=== PATIENT | female | born 1990 | race American Indian/Alaskan Native ===

== ENCOUNTER 2018-09-03 10:04 | Inpatient (IN) | payer MEDICAID ==
[2018-09-03] MEDS ORDERED: LACTATED RINGERS 1,000 ML ONE (10:54)
[2018-09-03] MEDS ORDERED: STADOL IV PRN (10:57)
[2018-09-03] MEDS ORDERED: BRETHINE SUB-Q PRN (10:57)
[2018-09-03] MEDS ORDERED: PHENERGAN PO PRN ×2 (10:57→13:59)
[2018-09-03] MEDS ORDERED: MINERAL OIL PO PRN (10:57)
[2018-09-03] MEDS ORDERED: XYLOCAINE 2% INFILTRATI ONE ×2 (10:57→13:53)
[2018-09-03] MEDS ORDERED: ZOFRAN IV PRN ×2 (10:57→13:59)
[2018-09-03] MEDS ORDERED: BRETHINE IVP PRN (10:57)
[2018-09-03] MEDS ORDERED: AMPICILLIN/NS 2 GM/100 ML 2 GM/100 ML BAG IV ONE (10:57)
[2018-09-03] MEDS ORDERED: SUBLIMAZE IV PRN (10:57)
[2018-09-03] MEDS ORDERED: LACTATED RINGERS 1,000 ML IV SCH (11:00)
[2018-09-03] MEDS ORDERED: PITOCin/NS 20 UNIT/1000ML DRIP 20 UNITS/1,000 ML BAG IV SCH ×2 (11:00→14:00)
[2018-09-03] MEDS ORDERED: PITOCin/NS 30 UNIT/500ML 30 UNITS/500 ML BAG IV SCH (11:00)
--- NOTE | 2018-09-03 11:00 | History and Physical Report ---
History of Present Illness Date of examination: 09/03/18 Chief complaint: Labor History of present illness: Pt is a 27yo BF EDC 09/29/18; EGA 36 2/7 weeks presents to L&D complaining of RUC's q 2-3 mins. She received late care with [facility] since 22 weeks and had only 3 visits. She was referred to [facility] for evaluation due to history of seizures. records were not available. Past History Past Medical History: no pertinent history Past Surgical History: no surgical history Family/Genetic History: none Social history: no significant social history, single - Obstetrical History Expected Date of Delivery: 09/29/18 Actual Gestation: 36 Week(s) 2 Day(s) : 3 Medications and Allergies Allergies Allergy/AdvReac Type Severity Reaction Status Date / Time No Known Allergies Allergy Verified 05/06/13 22:26 Home Medications Medication Instructions Recorded Confirmed Last Taken Type Lacosamide [Vimpat] 200 mg PO Q12HR 05/06/13 06/18/18 Unknown History Topiramate [Topamax] 100 mg PO BID 05/06/13 06/18/18 Unknown History Pnv,Calcium 72/Iron/Folic Acid 1 tab PO QDAY 06/18/18 06/18/18 Unknown History [ Vitamin Plus Low Iron] lamoTRIgine [LaMICtal] 25 mg PO BID 06/18/18 06/18/18 Unknown History Review of Systems All systems: negative - Physical Exam Breasts: Positive: deferred Cardiovascular: Regular rate Lungs: Positive: Clear to auscultation Abdomen: Positive: normal appearance Genitourinary (Female): Positive: normal external genitalia Uterus: Positive: enlarged - Obstetrical FHR: category 1 Uterine Contraction Monitor Mode: External Cervical Dilatation: 8 Cervical Effacement Percentage: 90 station: -2 Uterine Contraction Pattern: Regular Uterine Tone Measurement Phase: Contraction Uterine Contraction Intensity: Strong/Firm Results Result Diagrams: 09/03/18 12:05 All other labs normal. Assessment and Plan - Patient Problems (1) 36 weeks gestation of Onset Date: 09/03/18 Current Visit: Yes Status: Acute Plan to address problem: A: IUP @ 36 2/7 weeks in labor labor History of seizures P: Admit to L&D for expectant vaginal delivery Obtain records. (2) contractions Onset Date: 09/03/18 Current Visit: Yes Status: Acute
[2018-09-03 11:22] LABS: Bacteria,Urine 1+ /HPF (Negative); Bilirubin,Urine NEG (Negative); Blood,Urine NEG (Negative); Calcium Oxalate Crystals,Urine 3+; Color,Urine Amber (Yellow); Mucus,Urine 2+ /HPF; Urobilinogen,Urine < 2.0 mg/dL (<2.0)
[2018-09-03 11:29] LABS: Amphetamine Screen,Urine PRESUMPTIVE NEGATIVE; Benzodiazepines Screen,Urine PRESUMPTIVE NEGATIVE; Cannabinoid Screen,Urine PRESUMPTIVE NEGATIVE; Cocaine Screen,Urine PRESUMPTIVE NEGATIVE; Methadone Screen,Urine PRESUMPTIVE NEGATIVE; Opiate Screen,Urine PRESUMPTIVE NEGATIVE
[2018-09-03 12:33] LABS: Hematocrit 35.6 % (30.3-42.9); Hemoglobin 11.7 gm/dl (10.1-14.3); Mean Corpuscular HGB Conc 33 % (30-34); Mean Corpuscular Volume 90 fl (79-97); Platelet Count 210 K/mm3 (140-440); Red Blood Count 3.94 M/mm3 (3.65-5.03); Red Cell Distribution Width 14.6 % (13.2-15.2)
--- NOTE | 2018-09-03 13:58 | Procedure Note ---
OB Delivery Note - Delivery Date of Delivery: 09/03/18 Surgeon: ARMIDA RUST Estimated blood loss: 300cc - Vaginal Delivery presentation: vertex Delivery position: OA Intrapartum events: labor-<37 weeks, precipitous labor- <3hr Delivery induction: none Delivery augmentation: rupture of membranes Delivery monitor: external FHT, external uterine Route of delivery: Delivery placenta: spontaneous Delivery cord: 3 umbilical vessels Episiotomy: none Delivery laceration: 1st degree Delivery repair: vicryl Anesthesia: local Delivery comments: delivered OA an placed on Mom's chest for [id number] bonding and delayed cord clamping - Infant A at 1 minute: 8 at 5 minutes: 9 Infant Gender: Male (2775gms)
[2018-09-03] MEDS ORDERED: MILK OF MAGNESIA PO PRN (13:59)
[2018-09-03] MEDS ORDERED: PHENERGAN PR PRN (13:59)
[2018-09-03] MEDS ORDERED: TUCKS PAD TP PRN (13:59)
[2018-09-03] MEDS ORDERED: DULCOLAX PR PRN (13:59)
[2018-09-03] MEDS ORDERED: BENADRYL PO PRN (13:59)
[2018-09-03] MEDS ORDERED: DERMOPLAST TP PRN (13:59)
[2018-09-03] MEDS ORDERED: LANSINOH TP PRN (13:59)
[2018-09-03] MEDS ORDERED: SODIUM CHLORIDE FLUSH SYRINGE 10 ML IV NR (14:00)
[2018-09-03] MEDS ORDERED: AMPICILLIN/NS 1 GM/50 ML 1 GM/50 ML BAG IV SCH (14:58)
[2018-09-03] MEDS: IBUPROFEN PO SCH (16:53)
[2018-09-03] MEDS: TYLENOL PO PRN (16:54)
[2018-09-03] MEDS: COLACE PO SCH (22:37)
[2018-09-03] MEDS: FEOSOL PO SCH (22:37)
[2018-09-03] MEDS: NORCO 5/325 PO PRN (22:37)
[2018-09-03] MEDS ORDERED: LaMICtal PO SCH (23:00)
[2018-09-03] MEDS ORDERED: VIMPAT PO SCH (23:00)
[2018-09-04] MEDS: TOPAMAX PO SCH ×3 (00:38→22:20)
[2018-09-04] MEDS: LaMICtal PO SCH ×3 (00:59→22:25)
[2018-09-04] MEDS: VIMPAT PO SCH ×3 (00:59→22:24)
[2018-09-04 01:11] LABS: Hematocrit 35.9 % (30.3-42.9); Hemoglobin 11.9 gm/dl (10.1-14.3)
[2018-09-04] MEDS: IBUPROFEN PO SCH ×3 (04:52→21:32)
[2018-09-04] MEDS: TYLENOL PO PRN (05:07)
[2018-09-04] MEDS ORDERED: BOOSTRIX IM ONE (06:00)
[2018-09-04] MEDS ORDERED: M-M-R II VACCINE SUB-Q ONE (06:00)
--- NOTE | 2018-09-04 09:38 | Progress Note ---
Assessment and Plan - Patient Problems (1) 36 weeks gestation of Onset Date: 09/03/18 Current Visit: Yes Status: Resolved (2) contractions Onset Date: 09/03/18 Current Visit: Yes Status: Resolved (3) (normal spontaneous vaginal delivery) Onset Date: 09/04/18 Current Visit: Yes Status: Resolved Plan to address problem: A: S/P - PPD #1 Doing well History of seizures - stable. Spoke to Neurologist (Dr Castro) to continue home meds P: May go home tomorrow Follow up with [place] Neurologist (Dr Silverman) next week Subjective - Subjective Date of service: 09/04/18 Principal diagnosis: s/p - PPD #1 Interval history: Pt is feeling well without complaints. Bleeding improved. She denies any seizure activity and has not been able to get her home meds for evaluation. Patient reports: appetite normal, voiding normally, pain well controlled, flatus, ambulating normally, no dizzy ambulation, no nauseated [place]: doing well, in NICU Objective - Vital Signs Latest vital signs: Vital Signs Temp Pulse Resp BP Pulse Ox 09/04/18 08:01 98.4 F 83 24 111/80 100 09/04/18 02:58 98.5 F 86 20 130/92 98 09/03/18 21:58 98.5 F 81 20 125/84 99 09/03/18 16:54 20 09/03/18 15:07 95 H 136/91 09/03/18 14:52 93 H 126/84 09/03/18 14:37 96 H 123/84 09/03/18 14:22 97 H 127/84 09/03/18 14:07 100 H 123/88 09/03/18 11:01 97.9 F 18 Intake and Output 09/03/18 09/04/18 09/04/18 22:59 06:59 14:59 Intake Total 240 480 Output Total 500 Balance 240 -20 Intake: Oral 240 480 Output: Urine 500 Void 500 Other: Total, Intake Amount 240 240 Total, Output Amount 500 # Voids Void 1 1 - Exam Breasts: Present: deferred Abdomen: Present: normal appearance, soft Uterus: Present: normal, firm, fundal height below umbilicus Extremities: Present: normal - Labs Labs: Laboratory Tests 0209/03/18 09/03/18 12:05 12:05 Unknown WBC 9.4 RBC 3.94 Hgb 11.7 Hct 35.6 MCV 90 MCH 30 MCHC 33 RDW 14.6 Plt Count 210 Urine Color Sheree Urine Turbidity Cloudy Urine pH 5.0 Ur Specific [place] 1.024 Urine Protein 30 mg/dl Urine Glucose (UA) Neg Urine Ketones Neg Urine Blood Neg Urine Nitrite Neg Urine Bilirubin Neg Urine Urobilinogen < 2.0 Ur Leukocyte Esterase Mod Urine WBC (Auto) 4.0 Urine RBC (Auto) 9.0 U Epithel Cells (Auto) 12.0 Urine Bacteria (Auto) 1+ Calcium Oxalate Crystal 3+ Urine Mucus 2+ Urine Opiates Screen Urine Methadone Screen Ur Barbiturates Screen Ur Phencyclidine Scrn Ur Amphetamines Screen U Benzodiazepines Scrn Urine Cocaine Screen U Marijuana (THC) Screen Drugs of Abuse Note Blood Type AB POSITIVE Antibody Screen Negative 09/03/18 09/04/18 Unknown 00:33 WBC RBC Hgb 11.9 Hct 35.9 MCV MCH MCHC RDW Plt Count Urine Color Urine Turbidity Urine pH Ur Specific [place] Urine Protein Urine Glucose (UA) Urine Ketones Urine Blood Urine Nitrite Urine Bilirubin Urine Urobilinogen Ur Leukocyte Esterase Urine WBC (Auto) Urine RBC (Auto) U Epithel Cells (Auto) Urine Bacteria (Auto) Calcium Oxalate Crystal Urine Mucus Urine Opiates Screen Presumptive negative Urine Methadone Screen Presumptive negative Ur Barbiturates Screen Presumptive negative Ur Phencyclidine Scrn Presumptive positive Ur Amphetamines Screen Presumptive negative U Benzodiazepines Scrn Presumptive negative Urine Cocaine Screen Presumptive negative U Marijuana (THC) Screen Presumptive negative Drugs of Abuse Note Disclamer Blood Type Antibody Screen
[2018-09-04] MEDS: PRENATAL VITAMIN PO SCH (10:51)
[2018-09-04] MEDS: FEOSOL PO SCH ×2 (10:51→22:19)
[2018-09-04] MEDS: COLACE PO SCH ×2 (10:52→22:20)
--- NOTE | 2018-09-04 11:00 | Event Note ---
Date: 09/04/[address] Bradshaw. He only needed help finding out her antiepileptic drug doses. I said reviewing chart last night remotely I saw that she was now on less Vimpat and more lamotrigine than the chart indicated as her home meds. I then put her back to 25 mg po bid lamotrigine and raised Vimpat to 200 mg bid. I spoke to nurse today before speaking to him and she said family is to come in with her bottles. I suggested finding out if possible the name of the [place] neurologist who follows her, to then verify her meds. Verifying with pharmacy may not be as accurate if [place] has changed her doses. It appears she does not reliably recall her doses. No need for me to see her unless she is having seizures, though, as I explained.
--- NOTE | 2018-09-04 11:48 | Discharge Summary ---
Providers - Providers Date of Admission: 09/03/18 11:29 Date of discharge: 09/05/18 Attending physician: ARMIDA RUST Primary care physician: ARMIDA RUST Hospitalization Reason for admission: active labor, IUP - , labor Delivery: Episiotomy: none Laceration: 1st degree Other procedures: none complications: none Discharge diagnosis: delivery baby: male Hospital course: Unremarkable. Condition at discharge: Good Disposition: DC-01 TO HOME OR SELFCARE - Discharge Diagnoses (1) 36 weeks gestation of Status: Resolved (2) contractions Status: Resolved (3) (normal spontaneous vaginal delivery) Status: Resolved Plan - Discharge Medications Prescriptions: Ferrous Sulfate [Feosol 325 MG tab] 325 mg PO BID #60 tablet Ibuprofen [Motrin 600 MG tab] 600 mg PO Q6H #30 tablet Vit-Fe Fumar-FA [ Vitamin] 1 each PO QDAY #30 tablet - Provider Discharge Summary Activity: routine, no sex for 6 weeks, no heavy lifting 4 weeks, no strenuous exercise Diet: routine Instructions: routine Additional instructions: [] Smoking cessation referral if applicable(refer to patient education folder for contact #) [] Refer to [facility]'s [facility] Booklet Call your doctor immediately for: * Fever > 100.5 * Heavy vaginal bleeding ( >1 pad per hour) * Severe persistent headache * Shortness of breath * Reddened, hot, painful area to leg or breast * Drainage or odor from incision. * Keep incision clean and dry at all times and follow doctor's instructions regarding bathing/showering - Follow up plan Follow up: ARMIDA RUST MD [Primary Care Provider] - 6 Weeks AVERY STEELE MD [Staff Physician] - 7 Days
[2018-09-05] MEDS: NORCO 5/325 PO PRN ×3 (00:06→13:45)
[2018-09-05] MEDS: IBUPROFEN PO SCH (05:06)
[2018-09-05] MEDS: TOPAMAX PO SCH (09:56)
[2018-09-05] MEDS: FEOSOL PO SCH (09:57)
[2018-09-05] MEDS: PRENATAL VITAMIN PO SCH (09:57)
[2018-09-05] MEDS: COLACE PO SCH (09:57)
[2018-09-05] MEDS ORDERED: LaMICtal PO SCH (10:00)
[2018-09-05] MEDS: LaMICtal PO SCH (13:40)
[2018-09-05] MEDS: VIMPAT PO SCH (13:41)
[2018-09-05 15:44] VITALS: BP 130/83
[2018-09-05] MEDS ORDERED: LaMICtal PO ONE (22:00)
== END 2018-09-05 16:30 | disposition home or self-care (01) | DRG 775 ==
LOC: TRG 10:04 → LD 11:29 → OB 16:18
PROVIDERS: ADMIT Obstetrics & Gynecology; ATTEND Obstetrics & Gynecology
PROC: 10E0XZZ Delivery of Products of Conception, External Approach (ICD-10-PCS; principal; 2018-09-03)
PROC: 0HQ9XZZ Repair Perineum Skin, External Approach (ICD-10-PCS; 2018-09-03)
PROC: 3E0234Z Introduction of Serum, Toxoid and Vaccine into Muscle, Percutaneous Approach (ICD-10-PCS; 2018-09-04)
DX: O60.14X0 Preterm labor third trimester with preterm delivery third trimester, not applicable or unspecified (principal); Z3A.36 36 weeks gestation of pregnancy; Z37.0 Single live birth; O62.3 Precipitate labor; Z23 Encounter for immunization; O70.0 First degree perineal laceration during delivery
CPT/HCPCS: 36415; 80307; 81001; 85014; 85018; 85027; 86592; 86850; 86900; 86901; 88307; 90471; 90715; G0378; J0290; J2590; J3010; J7120

== ENCOUNTER 2019-05-13 05:41 | Day surgery (SDC) | payer MEDICAID ==
[~2019-05-13 05:41] MED LIST: LACTATED RINGERS 1,000 ML IV SCH
[2019-05-13] MEDS ORDERED: CELECOXIB 200 MG CAP PO NR (06:00)
[2019-05-13] MEDS ORDERED: GABAPENTIN 300 MG CAP PO NR (06:00)
[2019-05-13] MEDS ORDERED: MIDAZOLAM 2 MG/2 ML INJ IV NR (06:00)
--- NOTE | 2019-05-13 07:19 | Anesthesia Consultation ---
Anesthesia Consult and Med Hx Date of service: 05/13/19 - Airway Anesthetic Teeth Evaluation: Good ROM Head & Neck: Adequate Mental/Hyoid Distance: Adequate Mallampati Class: Class II Intubation Access Assessment: Probably Good - Pulmonary Exam CTA: Yes - Cardiac Exam Cardiac Exam: RRR - Pre-Operative Health Status ASA Pre-Surgery Classification: ASA2 Proposed Anesthetic Plan: General - Pulmonary Hx Smoking: Yes (quit 2mos ago) Hx Respiratory Symptoms: No - Cardiovascular System Hx Hypertension: No Hx Heart Attack/AMI: No - Central Nervous System Hx Seizures: Yes (last seizure 1 wk ago; seizure frequecy q2mos. Took AEDs this morning.) - Gastrointestinal Hx Gastroesophageal Reflux Disease: No - Endocrine Hx Renal Disease: No Hx Liver Disease: No Hx Insulin Dependent Diabetes: No Hx Non-Insulin Dependent Diabetes: No Hx Thyroid Disease: No - Other Systems Hx Obesity: No
--- NOTE | 2019-05-13 07:19 | Anesthesia Day of Surgery ---
Anesthesia Day of Surgery - Day of Surgery Patient Examined: Yes Patient H&P Reviewed: Yes Patient is NPO: Yes
[2019-05-13] MEDS ORDERED: HYDROmorphone 1 MG/1 ML INJ IV PRN (07:20)
[2019-05-13] MEDS ORDERED: PROPOFOL 200 MG/20 ML VIAL IV ONE (07:29)
[2019-05-13] MEDS ORDERED: BUPIVACAINE/PF (0.5%) 5 MG/1 ML 10 ML VIAL INFILTRATI ONE ×2 (07:29→09:03)
[2019-05-13] MEDS ORDERED: LIDOCAINE MPF (2%) 20 MG/1 ML VIAL 5 ML ONE (07:29)
[2019-05-13] MEDS ORDERED: ROCURONIUM 50 MG/5 ML INJ IV ONE (07:31)
--- NOTE | 2019-05-13 08:12 | Short Stay Summary ---
Short Stay Documentation Date of service: 05/13/19 Narrative H&P: Pt is a 28yo BF LMP 04/28/19 presents for permanent sterilization - History Principal diagnosis: Desires permanent sterilization H&P: obtained from office Past Medical History: seizures Past Surgical History: Other (Vagal nerve stimulation) Social history: no significant social history, single - Allergies and Medications Current Medications: Allergies No Known Allergies Allergy (Verified 05/08/19 17:39) Home Medications Medication Instructions Recorded Confirmed Last Taken Type Lacosamide [Vimpat] 200 mg PO BID 05/06/13 05/08/19 Unknown History Topiramate [Topamax] 100 mg PO BID 05/06/13 05/08/19 Unknown History lamoTRIgine [LaMICtal] 200 mg PO QAM 06/18/18 05/08/19 Unknown History Folic Acid [Folvite] 4 mg PO QAM 05/08/19 05/08/19 Unknown History lamoTRIgine [LaMICtal] 150 mg PO HS 05/08/19 05/08/19 Unknown History Active Medications Celecoxib (Celebrex) 200 mg PO PREOP NR Stop: 05/13/19 16:00 Gabapentin (Gabapentin) 300 mg PO PREOP NR Stop: 05/13/19 18:00 Hydromorphone HCl (Dilaudid) 0.5 mg IV Q10MIN PRN PRN Reason: Pain , Severe (7-10) Stop: 05/13/19 22:00 Lactated Ringer's (Lactated Ringers) 1,000 mls @ 100 mls/hr IV DIRECT ANDRE Midazolam HCl (Versed) 2 mg IV PREOP NR Stop: 05/13/19 18:00 - Physical exam General appearance: no acute distress Integumentary: no rash HEENT: Atraumatic Lungs: Clear to auscultation Breasts: deferred Heart: Regular rate Gastrointestinal: normal Female Genitourinary: deferred Rectal Exam: deferred Extremities: no ischemia, No edema Neurological: Normal gait, Normal speech - Brief post op/procedure progress note Date of procedure: 05/13/19 Pre-op diagnosis: Desires permanent sterilization Post-op diagnosis: same Procedure: Laproscopic Bilateral Tubal Ligation Anesthesia: GETA Findings: Normal uterus. Normal tubes and ovaries bilaterally. Surgeon: ARMIDA RUST Estimated blood loss: minimal Pathology: none Condition: stable - Hospital course Hospital course: Unremarkable. - Disposition Condition at discharge: Good Disposition: DC-01 TO HOME OR SELFCARE - Discharge Diagnoses (1) Encounter for sterilization Status: Resolved Short Stay Discharge Plan Activity: no restrictions Diet: regular Wound: open to air, keep clean and dry Follow up with: PRIMARY CARE, [Primary Care Provider] - 7 Days ARMIDA RUST MD [Staff Physician] - 14 Days Prescriptions: cephALEXin [Keflex] 500 mg PO Q6HR #28 capsule HYDROcodone/APAP 5-325 [[place] 5/325] 1 each PO Q6HR PRN #20 tablet PRN Reason: Pain
[2019-05-13] MEDS ORDERED: KETOROLAC 30 MG/1 ML INJ ONE (09:01)
[2019-05-13] MEDS ORDERED: GLYCOPYRROLATE 0.4 MG/2 ML INJ ONE (09:01)
[2019-05-13] MEDS ORDERED: NEOSTIGMINE 10MG/10 ML INJ MDV ONE (09:01)
[2019-05-13] MEDS ORDERED: ONDANSETRON 4 MG/2 ML INJ ONE (09:01)
[2019-05-13] MEDS ORDERED: SODIUM CHLORIDE 0.9% IRR 1,500 ML BOTTLE IR ONE (09:04)
--- NOTE | 2019-05-13 09:20 | Operative Report ---
Operative Report Operative Report: REOPERATIVE DIAGNOSIS: Desires permanent sterilization POSTOPERATIVE DIAGNOSIS: Same OPERATIVE PROCEDURE: Laparoscopic bilateral tubal ligation. SURGEON: Rigo Bradshaw MD ANESTHESIA: Gen. endotracheal intubation ANESTHESIOLOGIST: Dr. Crump ESTIMATED BLOOD LOSS: Minimal FINDINGS: Normal uterus with normal tubes and ovaries bilaterally. COMPLICATIONS: None COUNTS: Correct x3. PROCEDURE: After the patient was correctly identified and after general anesthesia was administered, the patient was prepped and draped in usual sterile fashion and placed in dorsal lithotomy position. First, the bladder was emptied using a straight catheter. Next, a speculum was placed in the vaginal vault and the anterior lip of the cervix was grasped using a single-tooth tenaculum. The uterine manipulator was then placed and the tenaculum and speculum were removed. Attention was then turned to the abdomen where first a periumbilical incision was made using a skin knife, and the Optiview trocar was inserted under direct visualization. After an adequate amount of abdominal insufflation, visualization of the pelvic organs found the uterus to be normal with tubes and ovaries bilaterally. Next, the left fallopian tube was grasped using the Kleppingers, and after identifying the fimbriated end of the left tube, this tube was cauterized in 3 continuous places along the proximal portion of the left tube. The same procedure was performed on the right fallopian tube after first identifying the fimbriated end of the right tube. This tube was also cauterized in 3 continuous places along the proximal portion of the right tube. At this point, the procedure was then considered complete. All instruments were removed from the abdomen. The abdomen was deflated and the periumbilical incision was closed using 0 Vicryl suture in a [id number] configuration on the fascia, followed by 4-0 Monocryl suture in sub-cuticular fashion on the skin. The incision was also infiltrated using 0.5% Marcaine solution. The uterine manipulator was removed. The patient tolerated the procedure well and was transferred to recovery room stable condition.
[2019-05-13 10:17] VITALS: BP 131/84
[2019-05-13] MEDS ORDERED: oxyCODONE /ACETAMINOPHEN 5-325MG TAB PO ONE (11:30)
--- NOTE | 2019-05-13 18:20 | Post Anesthesia Evaluation ---
- Post Anesthesia Evaluation Patient Participated: Yes Airway Patent: Yes Stable Respiratory Function: Yes Nausea/Vomiting: No Temp > 96.8F: Yes Pain Manageable: Yes Adequeate Hydration: Yes Anesthesia Complications: No Block Receding Appropriately: Not Applicable Patient on Ventilator: No
== END 2019-05-13 11:25 | disposition home or self-care (01) ==
LOC: OR 05:41
PROVIDERS: ATTEND Obstetrics & Gynecology
DX: Z30.2 Encounter for sterilization (principal); G40.909 Epilepsy, unspecified, not intractable, without status epilepticus; G43.909 Migraine, unspecified, not intractable, without status migrainosus; Z79.899 Other long term (current) drug therapy; Z87.891 Personal history of nicotine dependence; Z83.3 Family history of diabetes mellitus; Z98.890 Other specified postprocedural states; Z82.49 Family history of ischemic heart disease and other diseases of the circulatory system
CPT/HCPCS: 58670; 81025; J1170; J1885; J2250; J2405; J2704; J2710; J7120